=== PATIENT | male | born 1995 | race Caucasian/White ===

== ENCOUNTER 2018-04-03 11:26 | Emergency (ER) | payer BC ==
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
--- NOTE | 2018-04-03 12:36 | RAD ---
INDICATION: Intermittent LEFT side chest, shoulder, and neck pain for several weeks. COMPARISON: No relevant prior exams available on the [facility] for comparison. TECHNIQUE: Dual energy PA and routine lateral views of the chest were obtained. REPORT: Clear lungs and pleural spaces. Negative for pneumothorax. The heart, pulmonary vasculature, and mediastinal contours are unremarkable. No thoracic fracture or focal osseous lesion evident. IMPRESSION: Negative exam.
[2018-04-03 12:58] VITALS: BP 116/84
== END 2018-04-03 13:26 | disposition home or self-care (01) ==
LOC: UCCORT 11:26
DX: R07.89 Other chest pain (principal); I10 Essential (primary) hypertension; E11.9 Type 2 diabetes mellitus without complications; E78.00 Pure hypercholesterolemia, unspecified; J98.4 Other disorders of lung
CPT/HCPCS: 71046; 93005; 99211; G0463